=== PATIENT | female | born 1955 | race Caucasian/White ===

== ENCOUNTER 2022-03-17 11:48 | Emergency (ER) | payer MEDICARE, SELFPAY ==
[2022-03-17] VITALS (13 sets, daily range): BP systolic 152–188; BP diastolic 85–102; PULSE 88–109; RESP 9–24; TEMP 36.4; O2SAT 91–95
[2022-03-17 12:31] LABS: Basophils Absolute Auto 0.1 K/mm3 (0.0-0.1); Basophils Percent Auto 0.7 % (0.2-1.2); Eosinophils Percent Auto 0.4 % (0-4.4); Hemoglobin 16.9 g/dL (12.0-15.0); Immature Granulocyte Absolute 0.02 K/mm3 (0.00-0.031); Immature Granulocyte Percent A 0.2 % (0-0.5); Lymphocytes Absolute Auto 2.65 K/mm3 (0.9-3.2); Lymphocytes Percent Auto 26.4 % (18.3-44.2); Mean Corpuscular HGB Conc 33.1 g/dl (32-36); Mean Corpuscular Hemoglobin 31.4 pg (26-34); Mean Corpuscular Volume 94.6 fl (80-100); Monocytes Absolute Auto 0.7 K/mm3 (0.1-0.6); Monocytes Percent Auto 6.7 % (2.6-8.5); Neutrophils Absolute Auto 6.6 K/mm3 (1.3-6.7); Neutrophils Percent Auto 65.6 % (45.5-73.1); Platelet Count Result 326 k/mm3 (150-375); Red Blood Count 5.39 M/mm3 (4.2-5.4); White Blood Count 10.1 K/mm3 (4.5-10.0)
[2022-03-17 12:47] LABS: Alanine Aminotransferase 45 U/L (6-35); Albumin Level 4.8 g/dL (3.5-5.1); Alkaline Phosphatase 97 U/L (38-126); Anion Gap 11 mmol/L (8-16); Aspartate Amino Transferase 49 U/L (14-36); Bilirubin,Total 0.4 mg/dL (0.2-1.3); Blood Urea Nitrogen 15 mg/dL (7-17); Calcium 9.7 mg/dL (8.4-10.2); Carbon Dioxide 20 mmol/L (22-30); Chloride 105 mmol/L (98-107); Estimated CRCL calculation 45 ml/min; Estimated Glomerular Filt Rate 55; Glucose 115 mg/dL (65-110); Potassium 3.4 mmol/L (3.4-5.0); Sodium 136 mmol/L (137-145)
[2022-03-17 12:51] LABS: Squamous Epithelial Cell Urine Many /hpf (Few)
[2022-03-17 12:52] LABS: Appearance Urine Cloudy (Clear); Color Urine Dark Brown (Yellow)
[2022-03-17 12:53] LABS: Add Urine Microscopic? YES
--- NOTE | 2022-03-17 13:48 | ED.GENADULT ---
HPI - General Adult General Chief complaint: Unspecified Stated complaint: uti? Time Seen by Provider: 03/17/22 13:27 Source: patient History of Present Illness HPI narrative: Patient presents with concern for UTI. Patient reports has been feeling unwell for the past week with pain with urination as well as a sore throat. She saw her primary care doctor was strep negative COVID-negative was treated for UTI cannot member the name of the antibiotic. Symptoms did not improve so she came to the ER for further evaluation. Reports she is fatigued subjective fevers and continued pain with urination as well as abdominal pain. Also reports continued sore throat. Denies any nausea vomiting or diarrhea Related Data Allergies Allergy/AdvReac Type Severity Reaction Status Date / Time No Known Allergies Allergy Verified 03/17/22 13:59 Review of Systems Review of Systems: CONSTITUTIONAL: Denies fever, chills, or sweats. EYES: Denies visual changes, redness, or discharge. ENT: Denies rhinorrhea, congestion, sore throat, or otalgia. CARDIOVASCULAR: Denies chest pain, palpitations, or edema. RESPIRATORY: Denies cough or dyspnea. GASTROINTESTINAL: Denies abdominal pain, nausea, vomiting, or diarrhea. GENITOURINARY: Denies dysuria or hematuria. SKIN: Denies rash or itching. MUSCULOSKELETAL: Denies back pain, joint pain, or myalgia. NEUROLOGIC: Denies headache, numbness, dizziness, or weakness. PSYCHIATRIC: Denies anxiety or depression. All systems reviewed & are unremarkable except as noted in HPI and below Exam Narrative: GENERAL: Well-appearing, well-nourished, and in no acute distress. HEAD: Normocephalic, atraumatic. EYES: PERRLA and EOMI. ENT: Nares clear, no rhinorrhea or epistaxis. Mucous membranes moist. NECK: Supple. No masses. No JVD ABDOMEN: Soft, nontender, nondistended, normal active bowel sounds. EXTREMITIES: Normal range of motion. No edema. SKIN: Warm, dry, no rash. NEURO: No focal deficits. Alert and oriented x3. PSYCH: Normal mood and affect. Course Vital Signs Vital signs: Vital Signs Temperature 36.4 C L 03/17/22 12:14 Pulse Rate 109 H 03/17/22 12:14 Respiratory Rate 24 H 03/17/22 12:14 Blood Pressure 152/99 H 03/17/22 12:14 Pulse Oximetry 93 03/17/22 12:14 Oxygen Delivery Nasal Cannula 03/17/22 12:14 Oxygen Flow Rate 2 03/17/22 12:14 Temperature 36.4 C L 03/17/22 12:14 Pulse Rate 93 03/17/22 14:26 Respiratory Rate 16 03/17/22 14:26 Blood Pressure 164/85 H 03/17/22 14:26 Pulse Oximetry 94 03/17/22 14:26 Oxygen Delivery Nasal Cannula 03/17/22 12:14 Oxygen Flow Rate 2 03/17/22 12:14 Medical Decision Making MDM Narrative Medical decision making narrative: H&P as above, vs with mild tachycardia resolved without intervention at the time my evaluation patient is on her baseline oxygen requirement pt looks clinically well, exam reassuring, labs clinically unremarkable UA difficult to interpret due to use of Azo, additional labs/img considered, symptomatic relief available as needed, patient offered IV fluids declined prefer to take p.o. on reevaluation pt continues to looks clinically well. Given patient's persistent urinary symptoms and difficult to interpret UA will empirically treat with antibiotics. dns severe sepsis, severe dehydration. plan to tx/monitor as op w/ pcm f/u findings/plan discussed with pt, pt agree/comfortable with plan, return precautions given Vital Signs Vital Signs: Vital Signs Temperature 36.4 C L 03/17/22 12:14 Pulse Rate 109 H 03/17/22 12:14 Respiratory Rate 24 H 03/17/22 12:14 Blood Pressure 152/99 H 03/17/22 12:14 Pulse Oximetry 93 03/17/22 12:14 Oxygen Delivery Nasal Cannula 03/17/22 12:14 Oxygen Flow Rate 2 03/17/22 12:14 Temperature 36.4 C L 03/17/22 12:14 Pulse Rate 93 03/17/22 14:26 Respiratory Rate 16 03/17/22 14:26 Blood Pressure 164/85 H 03/17/22 14:26 Pulse Oximetry 94 03/17/22 14:26 Oxygen
[2022-03-17] MEDS: ACETAMINOPHEN 500 MG TABLET 1000 MG PO (14:21)
== END 2022-03-17 14:26 | disposition home or self-care (01) ==
PROVIDERS: Emergency Provider Emergency Medicine
DX: N39.0 Urinary tract infection, site not specified (principal); J02.9 Acute pharyngitis, unspecified
CPT/HCPCS: 36415; 80053; 81001; 85025; 99283; A9270